=== PATIENT | female | born 1945 | race Caucasian/White ===

== ENCOUNTER 2018-02-17 08:57 | Inpatient (IN) ==
[2018-02-17] MEDS ORDERED: Morphine Inj 4 MG/ML Vial IV.PUSH ONE ×2 (09:52→11:35)
[2018-02-17] MEDS ORDERED: Sod Chloride 0.9% Inj 1,000 ML IV.SIG ONE ×2 (09:52→11:35)
[2018-02-17] MEDS ORDERED: Famotidine PF Inj 20 MG/2 ML Vial IV.PUSH ONE (09:52)
--- NOTE | 2018-02-17 10:10 | ED ---
HPI General Chief complaint: Abdominal Pain Stated complaint: Mid Abd Pain x Yesterday Source: patient and RN notes reviewed Mode of arrival: ambulatory History of Present Illness HPI narrative: 72yF presenting with abdominal pain. The patient states that she was lifting heavy bags of mulch yesterday when she began to have sudden-onset epigastric pain which she describes as "aching", non-radiating, not made better or worse by anything, constant, associated with nausea and "dry heaving". Denies fever or chills, chest pain, dyspnea, diarrhea, constipation, or dysuria. Family history non-contributory. Related Data Home Medications Medication Instructions Recorded Confirmed No Known Home Medications 02/17/18 02/17/18 Allergies Allergy/AdvReac Type Severity Reaction Status Date / Time No Known Allergies Allergy Verified 02/17/18 09:03 Review of Systems ROS: all other systems reviewed are negative Constitutional Denies fever(s) Eyes Denies blurry vision ENT Denies nasal congestion Cardiovascular Denies chest pain Respiratory Denies cough Gastrointestinal Reports abdominal pain and Reports nausea Genitourinary Denies dysuria Musculoskeletal Denies back pain Neurologic Denies confusion Psychiatric Denies confusion PMFSH History History Provided By: Patient Medical History Medical History Patient denies medical problems (Acute) Surgical History Surgical History History of appendectomy (Acute) Hx of cholecystectomy (Acute) Social History Social History Substance History: No History of Abuse Smoking Status: Never smoker How Often Do You Have a Drink Containing Alcohol: 2 to 4 times a month Recent Travel in [facility] within the Last 8 Weeks: No Recent Out of Country Travel within the Last 8 Weeks: No Immunization History Tetanus Immunization: >5 Years Hx Influenza Vaccine This Season: No Exam Const General: healthy appearing and no acute distress HENAK Head: normocephalic and atraumatic Face and sinus: normal facial exam Eyes General: appearance normal, both eyes and all related structures Pupils: PERRL Chest Chest: normal inspection of the chest Resp Effort & Inspection: normal respiratory effort Auscultation: no rhonchi and no wheezes Cardio Rate: regular rate Rhythm: regular rhythm GI Other: Well-healed RUQ incisional scar from previous cholecystectomy Soft, non-distended, mild epigastric tenderness, no guarding or rebound Skin General: no rashes or lesions noted Neuro General: alert, awake, oriented x3 and no focal motor deficits Psych Affect: normal affect Course Initial Documented Vital Signs Temperature 97.6 F 02/17/18 09:02 Pulse Rate 82 02/17/18 09:02 Respiratory Rate 14 02/17/18 09:02 Blood Pressure 156/70 H 02/17/18 09:02 Pulse Oximetry 99 02/17/18 09:02 Last Documented Vital Signs Temperature 97.6 F 02/17/18 09:02 Pulse Rate 92 H 02/17/18 11:16 Respiratory Rate 16 02/17/18 11:16 Blood Pressure 119/63 02/17/18 11:16 Pulse Oximetry 98 02/17/18 11:16 Medical Decision Making MDM Narrative Medical decision making narrative: Assessment: 72yF presenting with abdominal pain Plan: EKG Pain control Labs CT abd/ pelvis Addendum: Patient found to have lipase >10,000 and intra/ extrahepatic biliary dilatation of uncertain etiology. This patient cannot go home as she has acute pancreatitis; she will need IV fluids/ pain meds, further workup, and close monitoring. I discussed these results with the patient and her , who understand and agree. Case discussed with Dr. Miller [facility]. Medical Screen Exam Complete: Yes Emergency Medical Condition: Yes Differential Diagnosis Differential Diagnosis: Differential diagnosis includes, but is not limited to: colitis, diverticulitis, gastritis, PUD, pancreatitis, lower suspicion for ACS Lab Data Lab results reviewed: Yes I reviewed the patient's lab results. Result diagrams: 02/17/18 10:10 02/17/18 10:10 Lab Results 02/17/18 02/17/18 Range/Units 10:10 10:10 CBC w Diff Auto diff final WBC 13.3 H (4.0-11.0) th/mm3 RBC 5.01 (4.00-5.30) mil/mm3 Hgb 12.7 (11.6-15.3) gm/dL Hct 39.0 (35.0-46.0) % MCV 77.9 L (80.0-100.0) fL MCH 25.4 L (27.0-34.0) pg MCHC 32.6 (32.0-36.0) % RDW 14.7 (11.6-17.2) % Plt Count 326 (150-450) th/mm3 MPV 9.1 (7.0-11.0) fL Neut % (Auto) 86.0 H (16.0-70.0) % Lymph % (Auto) 6.5 L (9.0-44.0) % [place] % (Auto) 4.4 (0.0-8.0) % Eos % (Auto) 0.1 (0.0-4.0) % Baso % (Auto) 3.0 H (0.0-2.0) % Neut # (Auto) 11.4 H (1.8-7.7) th/mm3 Lymph # (Auto) 0.9 L (1.0-4.8) th/mm3 [place] # (Auto) 0.6 (0.0-0.9) th/mm3 Eos # (Auto) 0.0 (0.0-0.4) th/mm3 Baso # (Auto) 0.4 H (0.0-0.2) th/mm3 WBC Differential . Differential Comment . Sodium 138 (136-145) meq/L Potassium 3.9 (3.5-5.1) meq/L Chloride 100 (98-107) meq/L Carbon Dioxide 28.3 (21.0-32.0) meq/L Anion Gap 10 (5-15) meq/L BUN 16 (7-18) mg/dL Creatinine 0.72 (0.50-1.00) mg/dL Estimated GFR 80 L (>89) mL/min Random Glucose 129 H (74-106) mg/dL Calcium 9.1 (8.5-10.1) mg/dL Total Bilirubin 0.8 (0.2-1.0) mg/dL AST 21 (15-37) U/L ALT 25 (10-53) U/L Alkaline Phosphatase 82 (45-117) U/L Total Protein 7.7 (6.4-8.2) g/dL Albumin 4.0 (3.4-5.0) g/dL Lipase 07405 H (73-393) U/L Imaging Data Radiologist's impression: Abdomen/Pelvis CT 02/17/18 09:52 CONCLUSION: 1. Moderate intra and extrahepatic biliary ductal dilatation without clear explanation on this examination. 2. Parapelvic renal cysts bilaterally. 3. Occasional colonic diverticula. ECG Data Attestation: I personally reviewed and interpreted this ECG as follows: Interpretation: Rate: 74 BPM Rhythm: Sinus [place]: Normal Intervals: Normal intervals, no blocks, QTc 390 ms Q waves: None T waves: Upright, no inversions ST segments: No elevations or depressions Impression: Non-specific EKG, no previous EKG available for comparison. Discharge Plan Discharge Disposition Patient Disposition: 30 Still Patient Discharge Condition Condition: Stable Discharge Details Diagnosis: Acute pancreatitis Physicians Team ED Provider: Kemi Dorsey Primary Care Provider: Brittney Ford Rxs /Orders / Referrals /Forms Prescriptions: No Action No Known Home Medications RF: 0 Discharge Interventions Interventions: Vital Signs Last Done: 02/17/18 11:16 Status ED Status: With Doctor
[2018-02-17 10:21] LABS: Baso # (Auto) 0.4 th/mm3 (0.0-0.2); Eos % (Auto) 0.1 % (0.0-4.0); Hemoglobin 12.7 gm/dL (11.6-15.3); Lymph # (Auto) 0.9 th/mm3 (1.0-4.8); Lymph % (Auto) 6.5 % (9.0-44.0); Mean Corpuscular HGB Conc 32.6 % (32.0-36.0); Mean Corpuscular Hemoglobin 25.4 pg (27.0-34.0); Mean Corpuscular Volume 77.9 fL (80.0-100.0); Mean Platelet Volume 9.1 fL (7.0-11.0); Mono # (Auto) 0.6 th/mm3 (0.0-0.9); Mono % (Auto) 4.4 % (0.0-8.0); Neut # (Auto) 11.4 th/mm3 (1.8-7.7); Platelet Count 326 th/mm3 (150-450); Red Blood Count 5.01 mil/mm3 (4.00-5.30); Red Cell Distribution Width 14.7 % (11.6-17.2); White Blood Count 13.3 th/mm3 (4.0-11.0)
[2018-02-17 10:25] LABS: Chloride 100 meq/L (98-107); Potassium 3.9 meq/L (3.5-5.1); Sodium 138 meq/L (136-145)
[2018-02-17 10:29] LABS: Anion Gap 10 meq/L (5-15); Blood Urea Nitrogen 16 mg/dL (7-18); Calcium 9.1 mg/dL (8.5-10.1); Carbon Dioxide 28.3 meq/L (21.0-32.0); Glucose,Random 129 mg/dL (74-106)
[2018-02-17 10:32] LABS: Alanine Aminotransferase 25 U/L (10-53); Aspartate Aminotransferase 21 U/L (15-37); Glomerular Filtration Rate 80 mL/min (>89)
[2018-02-17 10:34] LABS: Lipase 10566 U/L (73-393); Total Protein 7.7 g/dL (6.4-8.2)
[2018-02-17 10:35] LABS: Alkaline Phosphatase 82 U/L (45-117)
--- NOTE | 2018-02-17 11:09 | CT ---
EXAM DATE: 02/17/2018 11:02 AM EDT AGE/SEX: 72 years / Female INDICATIONS: Epigastric pain for one day. CLINICAL DATA: This is the patient's initial encounter. Patient reports that signs and symptoms have been present for 1 day and indicates a pain score of 6/10. MEDICAL/SURGICAL HISTORY: None. Appendectomy. Cholecystectomy. ORAL CONTRAST: No oral contrast ingested. RADIATION DOSE: 5.26 CTDI (mGy) COMPARISON: No prior exams available for comparison. TECHNIQUE: Multiple contiguous axial images were obtained through the abdomen and pelvis following b olus infusion of 90 ml Omnipaque 350 (iohexol) nonionic water-soluble contrast as a single exam dos e. No oral contrast ingested. Using automated exposure control and adjustment of the mA and/or kV ac cording to patient size, radiation dose was kept as low as reasonably achievable to obtain optimal di agnostic quality images. DICOM format image data is available electronically for review and comparis on. FINDINGS: Lower Lungs: The visualized lower lungs are clear. Liver: There is moderate intra and extrahepatic biliary ductal dilatation. The proximal common duct d iameter approaches 18 mm. The duct tapers gradually to the ampulla. No definite calcified stone or di screte mass is identified. There are several tiny probable liver cysts. No definite suspicious liver lesions. Spleen: Homogeneous density without enlargement. Pancreas: Unremarkable without mass or calcification. Kidneys: Parapelvic renal cysts bilaterally. No evidence of stone or mass. Adrenal Glands: Unremarkable. Aorta: The aorta and proximal iliac vessels are grossly unremarkable without aneurysmal dilation. Bowel/Mesentery: The bowel loops are grossly unremarkable. The cecum and sigmoid colon have a normal configuration. Abdominal Wall: Intact. Retroperitoneum: No evidence of adenopathy in the retrocrural, para-aortic, or deep pelvic regions. Bladder: Contours are smooth. Reproductive Organs: No abnormal masses or calcifications seen. Inguinal: The inguinal region is unremarkable without evidence of adenopathy. Bony Structures: Unremarkable. CONCLUSION: 1. Moderate intra and extrahepatic biliary ductal dilatation without clear explanation on this exami nation. 2. Parapelvic renal cysts bilaterally. 3. Occasional colonic diverticula. Electronically signed by: Kieran Badillo MD 02/17/2018 11:08 AM EDT
[2018-02-17] MEDS ORDERED: Bisacodyl 10 MG Supp RECTAL PRN (12:20)
[2018-02-17] MEDS ORDERED: Acetaminophen 325 MG Tablet PO PRN (12:20)
--- NOTE | 2018-02-17 12:33 | US ---
EXAM DATE: 02/17/2018 12:28 PM EDT AGE/SEX: 72 years / Female INDICATIONS: Right upper quadrant pain. CLINICAL DATA: This is the patient's initial encounter. Patient reports that signs and symptoms have been present for 1 day and indicates a pain score of 5/10. MEDICAL/SURGICAL HISTORY: None. Cholecystectomy. Appendectomy. COMPARISON: [facility], CT ABDOMEN & PELVIS W CONTRAST, 02/17/2018. . MEASUREMENTS: Liver:__ 14.5 cm. Common Bile Duct:__ 8mm. Right Kidney:__ 9.9 x 4.8 x 3.5 cm. FINDINGS: Liver: There is intrahepatic biliary duct dilatation seen centrally. The common bile duct is dilated. Portal Vein: Hepatopedal flow seen in portal vein. Common Duct: The common bile duct is dilated at 8 mm. Focal filling defect is not seen. Gallbladder: Surgically absent. Pancreas: The visualized portions are within normal limits Right Kidney: There is a 1.1 cm cystic area seen at the central right kidney. The renal cortex appea rs normal. Significant hydronephrosis is not seen. Other: None. CONCLUSION: 1. Intrahepatic and extrahepatic biliary duct dilatation. The patient is status post cholecystectomy . 2. 1.1 cm cystic area seen at the central right kidney representing either mild fullness of the manuel ecting system versus a central cyst. Electronically signed by: Kieran Holliday MD 02/17/2018 12:32 PM EDT
--- NOTE | 2018-02-17 13:26 | P.HP ---
History of Present Illness Primary Care Physician: Brittney Ford Chief Complaint: Abdominal pain History of Present Illness: This is a pleasant 72-year-old female patient with no known medical history presented to the ED with complaints of abdominal pain. Patient states that yesterday morning she was lifting heavy mulch and multiple bags and roughly 1 hour after activity she developed a sudden onset of epigastric pain. The pain is located in her epigastric area, characterized as aching and gas-like in nature, does not radiate and is constant. States that the IV pain medication in the ER alleviated the pain. Denies any known aggravating factors. Patient does state that she has not been eating or drinking for the past day, lacks appetite. She states that prior to the pain she was at her normal baseline. Denies any change in her appetite prior to this, nausea, vomiting or diarrhea. She denies any recent fevers, chills, cough, shortness of breath or dysuria. She denies any black or bloody stools. She denies ever having a colonoscopy or EGD in the past. She does admit to history of cholecystectomy and appendectomy. Denies tobacco abuse. Drinks 2 glasses of alcohol a week. Rarely follows with the PCP. - Diagnosis (1) Acute pancreatitis Inpatient Certification: I certify that the inpatient services were ordered in accordance with Medicare regulations governing the order. This includes certification that hospital inpatient services are reasonable and necessary and in the case of services not specified as inpatient-only under 42 CFR 419.22(n), that they are appropriately provided as inpatient services in accordance to with the 2-midnight benchmark under 43 CFR 412.3(e) Estimated Total Length of Stay (Days): 3 Plans for Post Hospital Care: Not yet determined Review of Systems All other systems reviewed negative except as stated in [facility] - History History Provided By: Patient - Medical History Medical History: Medical History (Last Reviewed 02/17/18 @ 10:16 by Kemi Dorsey DO) Patient denies medical problems - Surgical History Surgical History: Surgical History (Last Reviewed 02/17/18 @ 10:16 by Kemi Dorsey DO) History of appendectomy Hx of cholecystectomy - Family History Family History: Family History (Last Updated 02/17/18 @ 13:20 by Florence De) Other No pertinent family history - Tobacco History Smoking Status: Never smoker - Alcohol History How Often Do You Have a Drink Containing Alcohol: 2 to 4 times a month - Substance Use History Substance History: No History of Abuse - Travel History Recent Travel in the [place] Within the Last 8 Weeks: No Recent Travel Out of the Country Within the Last 8 Weeks: No - Immunization History Tetanus Immunization: >5 Years Hx Influenza Vaccine This Season: No Medications and Allergies Active Medications: Active Medications Acetaminophen (Tylenol) 650 mg PO Q4H PRN PRN Reason: Temp > 100.4 Al Hydroxide/Mg Hydroxide (Milk Of Magnesia Liq) 30 ml PO Q12H PRN PRN Reason: Mild Constipation Bisacodyl (Dulcolax Supp) 10 mg RECTAL DAILY PRN PRN Reason: SEVERE CONSITIPATION Heparin Sodium (Porcine) (Heparin Inj) 5,000 units SQ Q12HR KANDI Sodium Chloride (Ns Inj) 1,000 mls @ 100 mls/hr IV.CONT .Q10H KANDI Lactulose (Lactulose Liq) 30 ml PO DAILY PRN PRN Reason: SEVERE CONSITIPATION Morphine Sulfate (Morphine Inj) 2 mg IV.PUSH Q4H PRN PRN Reason: PAIN SCALE 1 TO 10 Ondansetron HCl (Zofran Inj) 4 mg IV.PUSH Q6H PRN PRN Reason: NAUSEA OR VOMITING Sennosides (Senokot) 17.2 mg PO Q12H PRN PRN Reason: Moderate Constipation Sodium Chloride (Ns Flush) 2 ml IV.FLUSH PRN PRN PRN Reason: FLUSH AFTER USING IV ACCESS Allergies Allergy/AdvReac Type Severity Reaction Status Date / Time No Known Allergies Allergy Verified 02/17/18 09:03 Home Medications Medication Instructions Recorded Confirmed Type No Known Home Medications 02/17/18 02/17/18 History Exam Vital signs: Vital Signs 02/17/18 09:02 02/17/18 11:16 02/17/18 12:27 Temperature 97.6 F Pulse Rate 82 92 H 86 Respiratory Rate 14 16 16 Blood Pressure 156/70 H 119/63 127/65 Pulse Oximetry 99 98 98 Intake & Output 02/16/18 02/17/18 02/17/18 18:59 06:59 18:59 Intake Total 1000 / 1000 Balance 1000 / 1000 Weight 44 kg Intake: IV 1000 / 1000 NS Inj 1,000 ML @ Wide Open IV. 1000 / 1000 SIG BOLUS ONE Rx#:[id number] Narrative: GENERAL: Well-developed, well-nourished patient in [place]. SKIN: Warm and dry. No rash. HEAD: Normocephalic. Atraumatic. EYES: Pupils equal and round. No scleral icterus. No injection or drainage. ENT: No nasal bleeding or discharge. Mucous membranes pink and moist. NECK: Supple. Trachea midline. CARDIOVASCULAR: Regular rate and rhythm. S1, S2 noted. No murmur appreciated. RESPIRATORY: No accessory muscle use. Clear to auscultation. Breath sounds equal bilaterally. GASTROINTESTINAL: Abdomen soft, nondistended. Normoactive bowel sounds x4. Mild tenderness to palpation of mid epigastric area. MUSCULOSKELETAL: No obvious deformities. Extremities without clubbing, cyanosis , or edema. NEUROLOGICAL: Awake and alert. No obvious cranial nerve deficits. Motor grossly within normal limits. 5/5 muscle strength in bilateral upper and lower extremities. Normal speech. PSYCHIATRIC: Appropriate mood and affect; insight and judgment normal. Results - Labs CBC & Chem 7: 02/17/18 10:10 02/17/18 10:10 Labs: Laboratory Results - last 24 hr 02/17/18 02/17/18 10:10 10:10 CBC w Diff Auto diff final WBC 13.3 H RBC 5.01 Hgb 12.7 Hct 39.0 MCV 77.9 L MCH 25.4 L MCHC 32.6 RDW 14.7 Plt Count 326 MPV 9.1 Neut % (Auto) 86.0 H Lymph % (Auto) 6.5 L [place] % (Auto) 4.4 Eos % (Auto) 0.1 Baso % (Auto) 3.0 H Neut # (Auto) 11.4 H Lymph # (Auto) 0.9 L [place] # (Auto) 0.6 Eos # (Auto) 0.0 Baso # (Auto) 0.4 H WBC Differential . Differential Comment . Sodium 138 Potassium 3.9 Chloride 100 Carbon Dioxide 28.3 Anion Gap 10 BUN 16 Creatinine 0.72 Estimated GFR 80 L Random Glucose 129 H Calcium 9.1 Total Bilirubin 0.8 AST 21 ALT 25 Alkaline Phosphatase 82 Total Protein 7.7 Albumin 4.0 Lipase 71479 H - Imaging Impressions Abdomen/Pelvis CT 02/17/18 09:52 CONCLUSION: 1. Moderate intra and extrahepatic biliary ductal dilatation without clear explanation on this examination. 2. Parapelvic renal cysts bilaterally. 3. Occasional colonic diverticula. Liver Ultrasound 02/17/18 11:17 CONCLUSION: 1. Intrahepatic and extrahepatic biliary duct dilatation. The patient is status post cholecystectomy. 2. 1.1 cm cystic area seen at the central right kidney representing either mild fullness of the collecting system versus a central cyst. Caprini VTE Risk Assessment Caprini VTE Risk Assessment: Moderate/High Risk (score >= 2) Caprini Risk Assessment Model: Point Value = 1 Point Value = 2 Point Value = 3 Point Value = 5 Age 41-60 Minor surgery BMI > 25 kg/m2 Swollen legs Varicose veins or History of unexplained or recurrent spontaneous Oral contraceptives or hormone replacement Sepsis (< 1 month) Serious lung disease, including pneumonia (< 1 month) Abnormal pulmonary function Acute myocardial infarction Congestive heart failure (< 1 month) History of inflammatory bowel disease Medical patient at bed rest Age 61-74 Arthroscopic surgery Major open surgery (> 45 min) Laparoscopic surgery (> 45 min) Malignancy Confined to bed (> 72 hours) Immobilizing plaster cast Central venous access Age >= 75 History of VTE Family history of VTE Factor V Leiden Prothrombin [id number] Lupus anticoagulant Anticardiolipin antibodies Elevated serum homocysteine Heparin-induced thrombocytopenia Other congenital or acquired thrombophilia Stroke (< 1 month) Elective arthroplasty Hip, pelvis, or leg fracture Acute spinal cord injury (< 1 month) Prophylaxis Regimen: Total Risk Factor Score Risk Level Prophylaxis Regimen 0-1 Low Early ambulation 2 Moderate Order ONE of the following: *Sequential Compression Device (SCD) *Heparin 5000 units SQ BID 3-4 Higher Order ONE of the following medications: *Heparin 5000 units SQ TID *Enoxaparin/Lovenox 40 mg SQ daily (WT < 150 kg, CrCl > 30 mL/min) *Enoxaparin/Lovenox 30 mg SQ daily (WT < 150 kg, CrCl > 10-29 mL/min) *Enoxaparin/Lovenox 30 mg SQ BID (WT < 150 kg, CrCl > 30 mL/min) AND/OR *Sequential Compression Device (SCD) 5 or more Highest Order ONE of the following medications: *Heparin 5000 units SQ TID (Preferred with Epidurals) *Enoxaparin/Lovenox 40 mg SQ daily (WT < 150 kg, CrCl > 30 mL/min) *Enoxaparin/Lovenox 30 mg SQ daily (WT < 150 kg, CrCl > 10-29 mL/min) *Enoxaparin/Lovenox 30 mg SQ BID (WT < 150 kg, CrCl > 30 mL/min) AND *Sequential Compression Device (SCD) Assessment and Plan - Assessment (1) Acute pancreatitis Code(s): K85.90 - Acute pancreatitis without necrosis or infection, unspecified Status: Acute Plan: Patient presented with abdominal pain. Lipase greater than 10,000 upon presentation. Abdominal/pelvis CT reviewed showing, moderate intra and extrahepatic biliary ductal dilatation. Subsequently, a liver ultrasound was done showing a common duct dilation of 8 mm. No stones seen. Morphine IV available per pain scale for control of pain. Zofran available for nausea. Patient was given IV fluid in ED, will continue. Clear liquid diet as tolerated. Consulted GI, input and recommendations pending. May require MRCP. Await recs. Supportive care.
[2018-02-17] MEDS: Sod Chloride 0.9% Inj 1,000 ML IV.CONT SCH (14:21)
[2018-02-17 14:32] LABS: Bilirubin,Urine Negative (Negative); Clarity,Urine Clear (Clear); Color,Urine Yellow (Yellw/Straw); Glucose,Urine (UA) Negative (Negative); Leukocyte Esterase,Urine Negative (Negative); Nitrite,Urine Negative (Negative); PH,Urine 5.5 (5.0-8.5); Specific Gravity,Urine Less/Equal 1.005 (1.002-1.035); Urobilinogen,Urine 0.2 mg/dL (Less than 2)
[2018-02-17] MEDS: Heparin - SQ 10,000 UNITS/ML Vial SQ SCH ×2 (14:37→21:51)
[2018-02-17] MEDS: Morphine Sulfate Inj 2 MG/ML Vial IV.PUSH PRN ×2 (14:40→21:51)
[2018-02-17 15:53] LABS: Squamous Epithelial Cell,Urine 0-5 /hpf (0-5); WBC,Urine 0-5 /hpf (0-5)
[2018-02-17 15:54] LABS: Bacteria,Urine Rare /hpf
[2018-02-18] MEDS: Sod Chloride 0.9% Inj 1,000 ML IV.CONT SCH ×2 (00:18→08:09)
[2018-02-18] MEDS: Heparin - SQ 10,000 UNITS/ML Vial SQ SCH (07:59)
--- NOTE | 2018-02-18 08:33 | P.PN ---
Subjective Interval history: Follow-up acute pancreatitis. Patient seen and examined, lying in bed comfortably no apparent distress. No acute events overnight. Much improved. Awaiting his level today. MRCP also scheduled for today. Vital signs stable. Gastroenterology consulted awaiting recommendations. Physical Exam Vital signs: Vital Signs 02/17/18 09:02 02/17/18 11:16 02/17/18 12:27 Temperature 97.6 F Pulse Rate 82 92 H 86 Respiratory Rate 14 16 16 Blood Pressure 156/70 H 119/63 127/65 Pulse Oximetry 99 98 98 02/17/18 13:33 02/17/18 20:00 02/18/18 00:00 Temperature 97.2 F L 98.3 F Pulse Rate 85 68 73 Respiratory Rate 18 16 16 Blood Pressure 129/57 L 102/52 L 102/55 L Pulse Oximetry 97 96 02/18/18 08:00 Temperature 98.4 F Pulse Rate 80 Respiratory Rate 16 Blood Pressure 108/55 L Pulse Oximetry 97 Intake & Output 02/17/18 02/18/18 02/18/18 18:59 06:59 18:59 Intake Total 1999 1000 / 1000 1000 / 1000 Balance 1999 1000 / 1000 1000 / 1000 Weight 44 kg 43 kg Intake: IV 1999 1000 / 1000 1000 / 1000 NS Inj 1,000 ML @ 100 mls/hr IV 1000 / 1000 1000 / 1000 .CONT .Q10H KANDI Rx#:[id number] NS Inj 1,000 ML @ Wide Open IV. 1999 SIG BOLUS ONE Rx#:[id number] Other: # Voids 4 Weight On Admission 44 kg Narrative: GENERAL: Well-developed, well-nourished patient in [facility]. SKIN: Warm and dry. No rash. HEAD: Normocephalic. Atraumatic. EYES: Pupils equal and round. No scleral icterus. No injection or drainage. ENT: No nasal bleeding or discharge. Mucous membranes pink and moist. NECK: Supple. Trachea midline. CARDIOVASCULAR: Regular rate and rhythm. S1, S2 noted. No murmur appreciated. RESPIRATORY: No accessory muscle use. Clear to auscultation. Breath sounds equal bilaterally. GASTROINTESTINAL: Abdomen soft, non-tender, nondistended. Normoactive bowel sounds x4. MUSCULOSKELETAL: No obvious deformities. Extremities without clubbing, cyanosis , or edema. NEUROLOGICAL: Awake and alert. No obvious cranial nerve deficits. Motor grossly within normal limits. 5/5 muscle strength in bilateral upper and lower extremities. Normal speech. PSYCHIATRIC: Appropriate mood and affect; insight and judgment normal. Results - Labs CBC & Chem 7: 02/17/18 10:10 02/17/18 10:10 Laboratory Results - last 24 hr 02/17/18 02/17/18 02/17/18 10:10 10:10 14:25 CBC w Diff Auto diff final WBC 13.3 H RBC 5.01 Hgb 12.7 Hct 39.0 MCV 77.9 L MCH 25.4 L MCHC 32.6 RDW 14.7 Plt Count 326 MPV 9.1 Neut % (Auto) 86.0 H Lymph % (Auto) 6.5 L [place] % (Auto) 4.4 Eos % (Auto) 0.1 Baso % (Auto) 3.0 H Neut # (Auto) 11.4 H Lymph # (Auto) 0.9 L [place] # (Auto) 0.6 Eos # (Auto) 0.0 Baso # (Auto) 0.4 H WBC Differential . Differential Comment . Sodium 138 Potassium 3.9 Chloride 100 Carbon Dioxide 28.3 Anion Gap 10 BUN 16 Creatinine 0.72 Estimated GFR 80 L Random Glucose 129 H Calcium 9.1 Total Bilirubin 0.8 AST 21 ALT 25 Alkaline Phosphatase 82 Total Protein 7.7 Albumin 4.0 Lipase 06997 H Urine Color Yellow Urine Clarity Clear Urine pH 5.5 Ur Specific Francis Less/equal 1.005 Urine Protein Negative Urine Glucose (UA) Negative Urine Ketones Trace H Urine Occult Blood Moderate H Urine Nitrate Negative Urine Bilirubin Negative Urine Urobilinogen 0.2 Ur Leukocyte Esterase Negative Urine RBC 4-15 H Urine WBC 0-5 Ur Squamous Epith Cells 0-5 Urine Bacteria Rare H Micro UA Comment Culture not ind Ur Microscopic Review Microscopic reviewed Urine Culture Comments Culture not ind - Imaging Impressions Abdomen/Pelvis CT 02/17/18 09:52 CONCLUSION: 1. Moderate intra and extrahepatic biliary ductal dilatation without clear explanation on this examination. 2. Parapelvic renal cysts bilaterally. 3. Occasional colonic diverticula. Liver Ultrasound 02/17/18 11:17 CONCLUSION: 1. Intrahepatic and extrahepatic biliary duct dilatation. The patient is status post cholecystectomy. 2. 1.1 cm cystic area seen at the central right kidney representing either mild fullness of the collecting system versus a central cyst. Assessment and Plan - Assessment (1) Acute pancreatitis Code(s): K85.90 - Acute pancreatitis without necrosis or infection, unspecified Status: Acute Plan: Patient presented with abdominal pain. Lipase greater than 10,000 upon presentation. Level today. Abdominal/pelvis CT reviewed showing, moderate intra and extrahepatic biliary ductal dilatation. Subsequently, a liver ultrasound was done showing a common duct dilation of 8 mm. No stones seen. MRCP ordered for today. Morphine IV available per pain scale for control of pain. Zofran available for nausea. Patient was given IV fluid in ED, will continue. Clear liquid diet as tolerated. Consulted GI, input and recommendations pending. Supportive care.
--- NOTE | 2018-02-18 10:15 | MR ---
EXAM DATE: 02/18/2018 9:56 AM EDT AGE/SEX: 72 years / Female INDICATIONS: Pancreatitis. CLINICAL DATA: This is the patient's initial encounter. Patient reports that signs and symptoms have been present for 1 day and indicates a pain score of 4/10. MEDICAL/SURGICAL HISTORY: None. Appendectomy. Cholecystectomy. Eye surgery for diplopia. COMPARISON: [facility], CT ABDOMEN & PELVIS W CONTRAST, 02/17/2018. . TECHNIQUE: Multiplanar, multisequence images of the abdomen were obtained without contrast including dedicated cholangiographic images. FINDINGS: Liver: The liver is homogeneous and normal in signal intensity with no focal defects. Intrahepatic Bile Ducts: There is no intrahepatic biliary ductal dilatation. Common Bile Duct: The common bile duct is mildly prominent proximally but more distally measures 6 t o 7 mm. No filling defects or obstructing lesions are identified. Gallbladder: The gallbladder is normal with no evidence for cholelithiasis, gallbladder wall thicken ing, or pericholecystic fluid. Pancreas: Appears unremarkable. The pancreatic duct is normal in caliber with no filling defects, or obstructing lesions identified. Other: Parapelvic renal cysts. CONCLUSION: 1. Mild intra and extrahepatic biliary ductal dilatation likely reservoir effect from previous binh cystectomy. 2. No choledocholithiasis. 3. Parapelvic renal cysts. Electronically signed by: Marlo Jensen MD 02/18/2018 10:14 AM EDT
[2018-02-18 14:22] LABS: Chol/HDL Ratio 2.13 Ratio; HDL Cholesterol 54.3 mg/dL (40.0-60.0)
--- NOTE | 2018-02-18 17:23 | ECG ---
Date Performed: 02/17/2018 Time Performed: 09:59:28 PTAGE: 72 years EKG: Sinus rhythm NORMAL ECG NO PREVIOUS TRACING DOCTOR: Nicole Pillai Interpretating Date/Time 02/18/2018 17:20:38
== END 2018-02-18 17:36 | disposition home or self-care (01) ==
LOC: PHED 08:57 → PHEDA 12:23 → PH3 14:03
PROVIDERS: ADMIT Internal Medicine; ATTEND Internal Medicine